=== PATIENT | male | born 1945 | race Caucasian/White ===

== ENCOUNTER 2018-01-27 13:34 | Inpatient (IN) | payer MEDICARE, BC ==
[~2018-01-27] VITALS: Ht 177.8 cm; Wt 144.5 kg
[2018-01-27] VITALS (7 sets, daily range): BP systolic 120–165; BP diastolic 71–120
[2018-01-27 14:03] LABS: BASOPHILS % (AUTO) 0.4 % (0-1); EOSINOPHILS # (AUTO) 0.1 X10'3 (0-0.9); EOSINOPHILS % (AUTO) 1.5 % (0-6); HEMOGLOBIN 14.8 g/dl (14.0-17.9); LYMPHOCYTES # (AUTO) 0.6 X10'3 (1.1-4.8); LYMPHOCYTES % (AUTO) 7.5 % (21-51); MEAN CORPUSCULAR HEMOGLOBIN 35.1 PG (27.0-31.0); MEAN CORPUSCULAR HGB CONC 33.7 % (33.0-36.5); MEAN CORPUSCULAR VOLUME 104.3 FL (78-98); MEAN PLATELET VOLUME 8.2 FL (7.4-10.4); MONOCYTES # (AUTO) 0.7 X10'3 (0-0.9); MONOCYTES % (AUTO) 9.1 % (2-12); NEUTROPHILS # (AUTO) 6.7 X10'3 (1.8-7.7); NEUTROPHILS % (AUTO) 81.5 % (42-75); PLATELET COUNT 141 X10'3 (140-440); RED BLOOD COUNT 4.22 X10'6 (4.70-6.10); RED CELL DISTRIBUTION WIDTH 15.9 % (11.5-14.5); WHITE BLOOD COUNT 8.2 X10'3 (4.5-11.0)
[2018-01-27] MEDS ORDERED: diltiazem-NS 100mg/100ml 100 ML IV ONE (14:09)
[2018-01-27] MEDS ORDERED: diltiazem 5mg/ml 5ml inj. IV ONE (14:10)
[2018-01-27] MEDS ORDERED: furosemide 40mg/4ml inj IV ONE (14:10)
[2018-01-27 14:19] LABS: ALANINE AMINOTRANSFERASE 34 U/L (12-78); ALBUMIN 3.4 G/DL (3.4-5.0); ALBUMIN/GLOBULIN RATIO 0.9 (1.1-1.5); ALKALINE PHOSPHATASE 168 IU/L (46-116); ANION GAP 13 (8-16); ASPARTATE AMINO TRANSFERASE 43 U/L (10-37); BILIRUBIN,TOTAL 2.3 MG/DL (0.1-1.0); BLOOD UREA NITROGEN 20 MG/DL (7-18); CALCIUM 8.8 MG/DL (8.5-10.1); CHLORIDE 100 MMOL/L (99-107); GLUCOSE 150 MG/DL (70-104); POTASSIUM 4.3 MMOL/L (3.5-5.1); SODIUM 137 MMOL/L (135-145); TOTAL PROTEIN 7.2 G/DL (6.4-8.2); eGFR 33 ML/MIN
[2018-01-27 14:32] LABS: INR 1.1 INR; PARTIAL THROMBOPLASTIN TIME 28 SECONDS (22-32); PROTHROMBIN TIME 11.2 SECONDS (9.0-12.0)
[2018-01-27] MEDS ORDERED: POTA20LI PO (14:52)
[2018-01-27] MEDS ORDERED: BEE580CA (14:52)
[2018-01-27] MEDS ORDERED: FLUC100T PO (14:52)
[2018-01-27] MEDS ORDERED: LISI-600 PO (14:54)
[2018-01-27] MEDS ORDERED: FURO40TA4 PO (14:54)
[2018-01-27 15:04] LABS: MAGNESIUM 1.8 MG/DL (1.5-2.4)
[2018-01-27] MEDS ORDERED: apixaban 5mg tablet PO STA (15:36)
[2018-01-27] MEDS ORDERED: magnesium Cl slow-release 64mg tablet PO PRN (15:45)
[2018-01-27] MEDS ORDERED: potassium Cl 40MEQ/NS 500ml 500 ML IV PRN ×2 (15:45)
[2018-01-27] MEDS ORDERED: magnesium 4gm in 100ml NS 100 ML IV PRN (15:45)
[2018-01-27] MEDS ORDERED: potassium Cl 20 mEq SR tablet PO PRN (15:45)
[2018-01-27] MEDS ORDERED: magnesium 1gm/100ml D5W IVPB 100 ML IV PRN (15:45)
[2018-01-27] MEDS: K and/or MAG REPLACEMENT MC SCH (15:55)
[2018-01-27] MEDS ORDERED: pneumococcal 23-VAL P-sac vacc 25 mcg/0.5ml vial IMVAC ONE (16:10)
[2018-01-27] MEDS ORDERED: diltiazem-NS 100mg/100ml 100 ML IV SCH (18:35)
[2018-01-27] MEDS: diltiazem-NS 100mg/100ml 100 ML IV SCH (19:24)
[2018-01-27] MEDS: diltiazem 30mg tablet PO SCH (19:34)
[2018-01-27] MEDS: furosemide 40mg/4ml inj IV SCH (22:29)
[2018-01-28] VITALS (14 sets, daily range): BP systolic 131–157; BP diastolic 48–90
[2018-01-28] MEDS: diltiazem-NS 100mg/100ml 100 ML IV SCH ×2 (00:49→11:12)
[2018-01-28] MEDS: diltiazem 30mg tablet PO SCH ×2 (01:36→08:05)
[2018-01-28 02:20] LABS: BASOPHILS % (AUTO) 0.5 % (0-1); EOSINOPHILS # (AUTO) 0.1 X10'3 (0-0.9); EOSINOPHILS % (AUTO) 1.7 % (0-6); HEMOGLOBIN 14.3 g/dl (14.0-17.9); LYMPHOCYTES # (AUTO) 0.7 X10'3 (1.1-4.8); LYMPHOCYTES % (AUTO) 9.6 % (21-51); MEAN CORPUSCULAR HEMOGLOBIN 34.4 PG (27.0-31.0); MEAN CORPUSCULAR HGB CONC 32.6 % (33.0-36.5); MEAN CORPUSCULAR VOLUME 105.4 FL (78-98); MEAN PLATELET VOLUME 8.4 FL (7.4-10.4); MONOCYTES # (AUTO) 0.8 X10'3 (0-0.9); MONOCYTES % (AUTO) 10.9 % (2-12); NEUTROPHILS # (AUTO) 5.8 X10'3 (1.8-7.7); NEUTROPHILS % (AUTO) 77.3 % (42-75); PLATELET COUNT 130 X10'3 (140-440); RED BLOOD COUNT 4.17 X10'6 (4.70-6.10); RED CELL DISTRIBUTION WIDTH 15.6 % (11.5-14.5); WHITE BLOOD COUNT 7.5 X10'3 (4.5-11.0)
[2018-01-28 02:33] LABS: ALBUMIN 3.1 G/DL (3.4-5.0); ANION GAP 10 (8-16); BLOOD UREA NITROGEN 21 MG/DL (7-18); BUN/CREATININE RATIO 10.7 (5.4-32.0); CALCIUM 8.8 MG/DL (8.5-10.1); CHLORIDE 101 MMOL/L (99-107); CHOL/HDL RATIO 2.6 (0.00-4.99); CHOLESTEROL 143 MG/DL (0-200); CREATININE 1.96 MG/DL (0.60-1.10); GLUCOSE 136 MG/DL (70-104); HDL CHOLESTEROL 54 MG/DL (35-60); LDL CHOLESTEROL 85 MG/DL (50-100); MAGNESIUM 1.7 MG/DL (1.5-2.4); POTASSIUM 3.7 MMOL/L (3.5-5.1); SODIUM 138 MMOL/L (135-145); TOTAL CARBON DIOXIDE 26.6 MMOL/L (24-32); TRIGLYCERIDES 64 MG/DL (20-135); eGFR 34 ML/MIN
[2018-01-28] MEDS: K and/or MAG REPLACEMENT MC SCH (08:00)
[2018-01-28] MEDS: furosemide 40mg/4ml inj IV SCH ×2 (08:05→19:57)
[2018-01-28 09:31] LABS: ALANINE AMINOTRANSFERASE 30 U/L (12-78); ALBUMIN 2.9 G/DL (3.4-5.0); ALBUMIN/GLOBULIN RATIO 0.8 (1.1-1.5); ALKALINE PHOSPHATASE 143 IU/L (46-116); ASPARTATE AMINO TRANSFERASE 30 U/L (10-37); BILIRUBIN,DIRECT 0.8 MG/DL (0-0.3); BILIRUBIN,TOTAL 2.2 MG/DL (0.1-1.0); TOTAL PROTEIN 6.4 G/DL (6.4-8.2)
[2018-01-28] MEDS ORDERED: pneumococcal 23-VAL P-sac vacc 25 mcg/0.5ml vial IMVAC ONE (10:00)
[2018-01-28] MEDS: apixaban 5mg tablet PO SCH ×2 (11:24→19:56)
[2018-01-28] MEDS ORDERED: diltiazem-NS 100mg/100ml 100 ML IV SCH (18:41)
[2018-01-28] MEDS: amiodarone 200mg tablet PO SCH (19:56)
[2018-01-28] MEDS: carVEDilol 12.5mg tablet PO SCH (21:58)
[2018-01-29] VITALS (7 sets, daily range): BP systolic 91–119; BP diastolic 60–69
[2018-01-29 06:34] LABS: BASOPHILS % (AUTO) 0.3 % (0-1); EOSINOPHILS # (AUTO) 0.2 X10'3 (0-0.9); EOSINOPHILS % (AUTO) 3.1 % (0-6); HEMATOCRIT 37.7 % (42.0-52.0); HEMOGLOBIN 12.6 g/dl (14.0-17.9); LYMPHOCYTES # (AUTO) 0.6 X10'3 (1.1-4.8); LYMPHOCYTES % (AUTO) 10.9 % (21-51); MEAN CORPUSCULAR HEMOGLOBIN 35.1 PG (27.0-31.0); MEAN CORPUSCULAR HGB CONC 33.4 % (33.0-36.5); MEAN CORPUSCULAR VOLUME 105.3 FL (78-98); MEAN PLATELET VOLUME 8.3 FL (7.4-10.4); MONOCYTES # (AUTO) 0.6 X10'3 (0-0.9); MONOCYTES % (AUTO) 10.2 % (2-12); NEUTROPHILS # (AUTO) 4.4 X10'3 (1.8-7.7); NEUTROPHILS % (AUTO) 75.5 % (42-75); PLATELET COUNT 113 X10'3 (140-440); RED BLOOD COUNT 3.58 X10'6 (4.70-6.10); RED CELL DISTRIBUTION WIDTH 15.6 % (11.5-14.5); WHITE BLOOD COUNT 5.9 X10'3 (4.5-11.0)
[2018-01-29 06:46] LABS: ALBUMIN 2.7 G/DL (3.4-5.0); ANION GAP 8 (8-16); BLOOD UREA NITROGEN 22 MG/DL (7-18); BUN/CREATININE RATIO 11.5 (5.4-32.0); CALCIUM 8.3 MG/DL (8.5-10.1); CHLORIDE 102 MMOL/L (99-107); CREATININE 1.91 MG/DL (0.60-1.10); GLUCOSE 143 MG/DL (70-104); MAGNESIUM 1.5 MG/DL (1.5-2.4); POTASSIUM 3.2 MMOL/L (3.5-5.1); SODIUM 140 MMOL/L (135-145); TOTAL CARBON DIOXIDE 30.4 MMOL/L (24-32); eGFR 35 ML/MIN
[2018-01-29] MEDS: K and/or MAG REPLACEMENT MC SCH (08:00)
[2018-01-29] MEDS: potassium Cl 20 mEq SR tablet PO PRN ×3 (08:01→21:11)
[2018-01-29] MEDS: apixaban 5mg tablet PO SCH ×2 (08:01→21:12)
[2018-01-29] MEDS: amiodarone 200mg tablet PO SCH ×2 (08:02→21:23)
[2018-01-29] MEDS: carVEDilol 12.5mg tablet PO SCH ×2 (08:02→21:12)
[2018-01-29] MEDS: furosemide 40mg/4ml inj IV SCH ×2 (08:05→21:12)
[2018-01-29] MEDS ORDERED: fluconazole 100mg tablet PO SCH (12:15)
[2018-01-29] MEDS: lisinopril 5mg tablet PO SCH (21:11)
[2018-01-30 06:00] VITALS: BP 107/65
[2018-01-30 07:24] LABS: BASOPHILS # (AUTO) 0.1 X10'3 (0-0.2); BASOPHILS % (AUTO) 1.3 % (0-1); EOSINOPHILS # (AUTO) 0.3 X10'3 (0-0.9); HEMATOCRIT 42.5 % (42.0-52.0); HEMOGLOBIN 14.3 g/dl (14.0-17.9); LYMPHOCYTES # (AUTO) 0.8 X10'3 (1.1-4.8); LYMPHOCYTES % (AUTO) 15.4 % (21-51); MEAN CORPUSCULAR HEMOGLOBIN 35.1 PG (27.0-31.0); MEAN CORPUSCULAR HGB CONC 33.6 % (33.0-36.5); MEAN CORPUSCULAR VOLUME 104.5 FL (78-98); MEAN PLATELET VOLUME 8.8 FL (7.4-10.4); MONOCYTES # (AUTO) 0.5 X10'3 (0-0.9); MONOCYTES % (AUTO) 10.2 % (2-12); NEUTROPHILS # (AUTO) 3.5 X10'3 (1.8-7.7); NEUTROPHILS % (AUTO) 67.1 % (42-75); PLATELET COUNT 118 X10'3 (140-440); RED BLOOD COUNT 4.06 X10'6 (4.70-6.10); RED CELL DISTRIBUTION WIDTH 15.7 % (11.5-14.5); WHITE BLOOD COUNT 5.2 X10'3 (4.5-11.0)
[2018-01-30] MEDS: furosemide 40mg/4ml inj IV SCH ×2 (07:26→20:00)
[2018-01-30] MEDS: apixaban 5mg tablet PO SCH ×2 (07:26→21:58)
[2018-01-30] MEDS: potassium Cl 20 mEq SR tablet PO PRN (07:27)
[2018-01-30] MEDS: carVEDilol 12.5mg tablet PO SCH ×2 (07:27→20:00)
[2018-01-30] MEDS: amiodarone 200mg tablet PO SCH ×2 (07:27→21:57)
[2018-01-30] MEDS: K and/or MAG REPLACEMENT MC SCH (07:30)
[2018-01-30 09:49] LABS: ALBUMIN 2.8 G/DL (3.4-5.0); ANION GAP 13 (8-16); BLOOD UREA NITROGEN 28 MG/DL (7-18); CALCIUM 8.3 MG/DL (8.5-10.1); CHLORIDE 102 MMOL/L (99-107); CREATININE 2.15 MG/DL (0.60-1.10); GLUCOSE 134 MG/DL (70-104); MAGNESIUM 1.7 MG/DL (1.5-2.4); POTASSIUM 3.5 MMOL/L (3.5-5.1); SODIUM 141 MMOL/L (135-145); TOTAL CARBON DIOXIDE 26.4 MMOL/L (24-32); eGFR 30 ML/MIN
[2018-01-30 11:00] VITALS: BP 103/69
[2018-01-30] MEDS ORDERED: magnesium hydroxide 30ml (MOM) UD suspension PO PRN (15:45)
[2018-01-30 19:00] VITALS: BP 109/76
[2018-01-30] MEDS: lisinopril 5mg tablet PO SCH (21:58)
[2018-01-30 22:00] VITALS: BP 109/69
[2018-01-31] VITALS (11 sets, daily range): BP systolic 94–138; BP diastolic 53–88
[2018-01-31 06:29] LABS: BASOPHILS # (AUTO) 0.1 X10'3 (0-0.2); EOSINOPHILS # (AUTO) 0.3 X10'3 (0-0.9); EOSINOPHILS % (AUTO) 6.2 % (0-6); LYMPHOCYTES # (AUTO) 0.7 X10'3 (1.1-4.8); LYMPHOCYTES % (AUTO) 13.9 % (21-51); MEAN CORPUSCULAR HEMOGLOBIN 35.1 PG (27.0-31.0); MEAN CORPUSCULAR HGB CONC 33.4 % (33.0-36.5); MEAN PLATELET VOLUME 8.5 FL (7.4-10.4); MONOCYTES # (AUTO) 0.5 X10'3 (0-0.9); MONOCYTES % (AUTO) 10.4 % (2-12); NEUTROPHILS # (AUTO) 3.6 X10'3 (1.8-7.7); NEUTROPHILS % (AUTO) 68.5 % (42-75); PLATELET COUNT 122 X10'3 (140-440); RED CELL DISTRIBUTION WIDTH 15.2 % (11.5-14.5); WHITE BLOOD COUNT 5.2 X10'3 (4.5-11.0)
[2018-01-31 06:42] LABS: ALBUMIN 2.8 G/DL (3.4-5.0); ANION GAP 8 (8-16); BLOOD UREA NITROGEN 32 MG/DL (7-18); BUN/CREATININE RATIO 14.8 (5.4-32.0); CALCIUM 8.9 MG/DL (8.5-10.1); CHLORIDE 103 MMOL/L (99-107); CREATININE 2.16 MG/DL (0.60-1.10); GLUCOSE 127 MG/DL (70-104); MAGNESIUM 1.8 MG/DL (1.5-2.4); POTASSIUM 3.6 MMOL/L (3.5-5.1); SODIUM 143 MMOL/L (135-145); eGFR 30 ML/MIN
[2018-01-31] MEDS: furosemide 40mg/4ml inj IV SCH (07:48)
[2018-01-31] MEDS: apixaban 5mg tablet PO SCH (07:48)
[2018-01-31] MEDS: amiodarone 200mg tablet PO SCH ×2 (07:48→20:26)
[2018-01-31] MEDS: carVEDilol 12.5mg tablet PO SCH ×2 (07:48→20:25)
[2018-01-31] MEDS: K and/or MAG REPLACEMENT MC SCH (08:00)
[2018-01-31] MEDS ORDERED: DOBUTamine-DoBUTrex 500mg/D5W 250 ML IV SCH (20:00)
[2018-01-31] MEDS: acetylcysteine 200 MG/ml 4ml vial PO SCH (20:25)
[2018-01-31] MEDS: lisinopril 5mg tablet PO SCH (20:25)
[2018-01-31] MEDS: DOBUTamine-DoBUTrex 500mg/D5W 250 ML IV SCH (20:28)
[2018-02-01] VITALS (15 sets, daily range): BP systolic 89–132; BP diastolic 51–89
[2018-02-01 06:43] LABS: BASOPHILS # (AUTO) 0.1 X10'3 (0-0.2); BASOPHILS % (AUTO) 1.1 % (0-1); EOSINOPHILS # (AUTO) 0.3 X10'3 (0-0.9); EOSINOPHILS % (AUTO) 5.8 % (0-6); HEMATOCRIT 43.6 % (42.0-52.0); HEMOGLOBIN 14.6 g/dl (14.0-17.9); LYMPHOCYTES # (AUTO) 0.8 X10'3 (1.1-4.8); LYMPHOCYTES % (AUTO) 15.3 % (21-51); MEAN CORPUSCULAR HEMOGLOBIN 34.8 PG (27.0-31.0); MEAN CORPUSCULAR HGB CONC 33.4 % (33.0-36.5); MEAN CORPUSCULAR VOLUME 104.1 FL (78-98); MEAN PLATELET VOLUME 8.4 FL (7.4-10.4); MONOCYTES # (AUTO) 0.6 X10'3 (0-0.9); MONOCYTES % (AUTO) 11.3 % (2-12); NEUTROPHILS # (AUTO) 3.5 X10'3 (1.8-7.7); NEUTROPHILS % (AUTO) 66.5 % (42-75); PLATELET COUNT 134 X10'3 (140-440); RED BLOOD COUNT 4.19 X10'6 (4.70-6.10); RED CELL DISTRIBUTION WIDTH 15.8 % (11.5-14.5); WHITE BLOOD COUNT 5.3 X10'3 (4.5-11.0)
[2018-02-01 06:48] LABS: ANION GAP 5 (8-16); BLOOD UREA NITROGEN 35 MG/DL (7-18); BUN/CREATININE RATIO 16.7 (5.4-32.0); CALCIUM 8.8 MG/DL (8.5-10.1); CHLORIDE 101 MMOL/L (99-107); CREATININE 2.09 MG/DL (0.60-1.10); GLUCOSE 131 MG/DL (70-104); POTASSIUM 3.5 MMOL/L (3.5-5.1); SODIUM 140 MMOL/L (135-145); TOTAL CARBON DIOXIDE 33.9 MMOL/L (24-32); eGFR 31 ML/MIN
[2018-02-01] MEDS: amiodarone 200mg tablet PO SCH ×2 (07:23→19:17)
[2018-02-01] MEDS: acetylcysteine 200 MG/ml 4ml vial PO SCH ×2 (07:23→19:17)
[2018-02-01] MEDS: carVEDilol 12.5mg tablet PO SCH ×2 (07:23→19:17)
[2018-02-01] MEDS: K and/or MAG REPLACEMENT MC SCH (08:00)
[2018-02-01] MEDS: DOBUTamine-DoBUTrex 500mg/D5W 250 ML IV SCH ×2 (12:53→23:50)
[2018-02-01] MEDS: SODIUM CHLORIDE 0.45% IV SCH (17:16)
[2018-02-01] MEDS: SODIUM BICARBONATE IV SCH (17:16)
[2018-02-01] MEDS: lisinopril 5mg tablet PO SCH (21:26)
[2018-02-02] VITALS (17 sets, daily range): BP systolic 103–163; BP diastolic 62–119
[2018-02-02] MEDS: SODIUM CHLORIDE 0.45% IV SCH ×2 (05:32→16:46)
[2018-02-02] MEDS: SODIUM BICARBONATE IV SCH ×2 (05:32→16:46)
[2018-02-02] MEDS: acetylcysteine 200 MG/ml 4ml vial PO SCH ×2 (07:21→19:41)
[2018-02-02] MEDS: amiodarone 200mg tablet PO SCH ×2 (07:21→19:43)
[2018-02-02] MEDS: carVEDilol 12.5mg tablet PO SCH ×2 (07:21→19:43)
[2018-02-02] MEDS ORDERED: midazolam 2 mg/2 ml injection ONE (07:31)
[2018-02-02] MEDS ORDERED: fentaNYL/PF 50MCG/1 ML 2ML syringe ONE (07:31)
[2018-02-02] MEDS ORDERED: iohexol 350MG/ML 100ml bottle IV ONE (07:32)
[2018-02-02] MEDS ORDERED: iohexol 350 MG/ML 50ML vial IV ONE (07:32)
[2018-02-02] MEDS ORDERED: heparin 1,000unit/ml 10ml vial 10 ML ONE (07:32)
[2018-02-02] MEDS ORDERED: nitroGLYCERIN-Tridil 50MG/D5W 250 ML IV ONE (07:32)
[2018-02-02 07:59] LABS: ALBUMIN 2.8 G/DL (3.4-5.0); ANION GAP 8 (8-16); BLOOD UREA NITROGEN 30 MG/DL (7-18); BUN/CREATININE RATIO 16.4 (5.4-32.0); CALCIUM 8.6 MG/DL (8.5-10.1); CHLORIDE 102 MMOL/L (99-107); CREATININE 1.83 MG/DL (0.60-1.10); GLUCOSE 124 MG/DL (70-104); SODIUM 142 MMOL/L (135-145); TOTAL CARBON DIOXIDE 31.6 MMOL/L (24-32); eGFR 36 ML/MIN
[2018-02-02] MEDS: K and/or MAG REPLACEMENT MC SCH (08:00)
[2018-02-02 08:01] LABS: POTASSIUM 3.6 MMOL/L (3.5-5.1)
[2018-02-02] MEDS ORDERED: LIDOcaine 1% (10mg/ml)w/preservative injection 20ml MDV ONE (08:18)
[2018-02-02] MEDS ORDERED: furosemide 40mg/4ml inj ONE (09:00)
[2018-02-02] MEDS ORDERED: potassium Cl 20 mEq SR tablet PO STA (09:45)
[2018-02-02] MEDS ORDERED: potassium Cl 20 mEq SR tablet PO SCH (10:00)
[2018-02-02 10:33] LABS: CHOL/HDL RATIO 3.6 (0.00-4.99); CHOLESTEROL 139 MG/DL (0-200); HDL CHOLESTEROL 39 MG/DL (35-60); LDL CHOLESTEROL 91 MG/DL (50-100); TRIGLYCERIDES 58 MG/DL (20-135)
[2018-02-02] MEDS: DOBUTamine-DoBUTrex 500mg/D5W 250 ML IV SCH (12:43)
[2018-02-02] MEDS: potassium Cl 20 mEq SR tablet PO SCH (19:43)
[2018-02-02] MEDS: furosemide 40mg/4ml inj IV SCH (19:43)
[2018-02-02] MEDS: lisinopril 5mg tablet PO SCH (22:22)
[2018-02-03] VITALS (12 sets, daily range): BP systolic 84–154; BP diastolic 48–97
[2018-02-03] MEDS: DOBUTamine-DoBUTrex 500mg/D5W 250 ML IV SCH ×2 (01:40→12:32)
[2018-02-03] MEDS: potassium Cl 20 mEq SR tablet PO SCH ×2 (07:50→21:19)
[2018-02-03] MEDS: apixaban 5mg tablet PO SCH ×2 (07:50→21:19)
[2018-02-03] MEDS: amiodarone 200mg tablet PO SCH ×2 (07:50→21:19)
[2018-02-03] MEDS: carVEDilol 12.5mg tablet PO SCH ×2 (07:50→21:20)
[2018-02-03] MEDS: furosemide 40mg/4ml inj IV SCH (07:51)
[2018-02-03] MEDS: acetylcysteine 200 MG/ml 4ml vial PO SCH (07:51)
[2018-02-03] MEDS: K and/or MAG REPLACEMENT MC SCH (08:00)
[2018-02-03 09:51] LABS: ALBUMIN 2.6 G/DL (3.4-5.0); ANION GAP 5 (8-16); BLOOD UREA NITROGEN 25 MG/DL (7-18); BUN/CREATININE RATIO 13.8 (5.4-32.0); CALCIUM 8.4 MG/DL (8.5-10.1); CHLORIDE 100 MMOL/L (99-107); CREATININE 1.81 MG/DL (0.60-1.10); GLUCOSE 189 MG/DL (70-104); MAGNESIUM 1.9 MG/DL (1.5-2.4); SODIUM 142 MMOL/L (135-145); TOTAL CARBON DIOXIDE 36.7 MMOL/L (24-32); eGFR 37 ML/MIN
[2018-02-03 09:52] LABS: POTASSIUM 3.8 MMOL/L (3.5-5.1)
[2018-02-03 15:00] LABS: ISTAT Hct MIX 40 %PCV (42-52); ISTAT O2 SATURATION MIX VENOUS 64 % (60-80); ISTAT SOURCE MIX
[2018-02-03 15:00] LABS: ISTAT HGB ART 13.3 g/dl (14.0-18.0); ISTAT Hct ART 39 %PCV (42-52); ISTAT O2 SATURATION ARTERIAL 97 % (95-98); ISTAT SOURCE ART
[2018-02-03] MEDS ORDERED: furosemide 40mg/4ml inj IV SCH (16:00)
[2018-02-03] MEDS: lisinopril 5mg tablet PO SCH (21:19)
[2018-02-04] MEDS: furosemide 20 MG/2 ML vial IV SCH ×3 (00:55→16:00)
[2018-02-04 01:00] VITALS: BP 119/85
[2018-02-04 03:00] VITALS: BP 123/61
[2018-02-04 05:00] VITALS: BP 132/74
[2018-02-04] MEDS: DOBUTamine-DoBUTrex 500mg/D5W 250 ML IV SCH (05:29)
[2018-02-04 06:00] VITALS: BP 135/70
[2018-02-04] MEDS: potassium Cl 20 mEq SR tablet PO SCH (07:27)
[2018-02-04] MEDS: carVEDilol 12.5mg tablet PO SCH (07:27)
[2018-02-04] MEDS: apixaban 5mg tablet PO SCH (07:27)
[2018-02-04] MEDS: amiodarone 200mg tablet PO SCH (07:27)
[2018-02-04] MEDS: K and/or MAG REPLACEMENT MC SCH (08:00)
[2018-02-04 10:07] LABS: ALBUMIN 2.6 G/DL (3.4-5.0); ANION GAP 4 (8-16); BLOOD UREA NITROGEN 26 MG/DL (7-18); BUN/CREATININE RATIO 12.7 (5.4-32.0); CALCIUM 8.6 MG/DL (8.5-10.1); CHLORIDE 102 MMOL/L (99-107); CREATININE 2.05 MG/DL (0.60-1.10); GLUCOSE 201 MG/DL (70-104); POTASSIUM 3.6 MMOL/L (3.5-5.1); SODIUM 144 MMOL/L (135-145); TOTAL CARBON DIOXIDE 38.5 MMOL/L (24-32); eGFR 32 ML/MIN
[2018-02-04 11:00] VITALS: BP 112/57
== END 2018-02-04 15:45 | DRG 286 ==
LOC: ER 13:38 → ED HOLD 15:44 → PCU 3S 16:50
PROVIDERS: ADMIT Internal Medicine; ATTEND Family Medicine
PROC: 3E0234Z Introduction of Serum, Toxoid and Vaccine into Muscle, Percutaneous Approach (ICD-10-PCS; 2018-01-28)
PROC: 4A023N8 Measurement of Cardiac Sampling and Pressure, Bilateral, Percutaneous Approach (ICD-10-PCS; principal; 2018-02-02)
PROC: B2111ZZ Fluoroscopy of Multiple Coronary Arteries using Low Osmolar Contrast (ICD-10-PCS; 2018-02-02)
PROC: B2151ZZ Fluoroscopy of Left Heart using Low Osmolar Contrast (ICD-10-PCS; 2018-02-02)
DX: I13.0 Hypertensive heart and chronic kidney disease with heart failure and stage 1 through stage 4 chronic kidney disease, or unspecified chronic kidney disease (principal); I50.23 Acute on chronic systolic (congestive) heart failure; Z68.42 Body mass index [BMI] 45.0-49.9, adult; I48.91 Unspecified atrial fibrillation; E66.01 Morbid (severe) obesity due to excess calories; G51.0 Bell's palsy; Z60.2 Problems related to living alone; N50.89 Other specified disorders of the male genital organs; I25.10 Atherosclerotic heart disease of native coronary artery without angina pectoris; I87.2 Venous insufficiency (chronic) (peripheral); N18.9 Chronic kidney disease, unspecified; R29.6 Repeated falls; Z23 Encounter for immunization; Z79.899 Other long term (current) drug therapy; Z82.49 Family history of ischemic heart disease and other diseases of the circulatory system
CPT/HCPCS: 36415; 71045; 80048; 80053; 80061; 80076; 82803; 83735; 83880; 84484; 85014; 85025; 85610; 85730; 87070; 90732; 93005; 93306; 93460; 96365; 96375; 97110; 97116; 97161; 97530; 99285; A4620; A6257; C1760; C1769; J1250; J1644; J1940; J2001; J2250; J3010; J3490; Q9967

== ENCOUNTER 2018-06-02 09:16 | Emergency (ER) | payer MEDICARE, BC ==
[~2018-06-02] VITALS: Ht 180.3 cm; Wt 119.5 kg
[~2018-06-02 09:16] MED LIST: AMIO200T40 PO; CARV-50 PO; FURO40TA4 PO; LISI-600 PO; POTA20LI PO
[2018-06-02 09:25] VITALS: BP 151/60
[2018-06-02] MEDS ORDERED: ondansetron 4mg rapidly disintigrating tab PO ONE (11:45)
[2018-06-02] MEDS ORDERED: DOXYCYCLINE 100MG CAPSULE PO STA (11:46)
[2018-06-02] MEDS ORDERED: ONDA8TAB6 PO (11:47)
[2018-06-02] MEDS ORDERED: DOXY100C43 PO (11:47)
[2018-06-02] MEDS ORDERED: CEPH250T PO (11:49)
== END 2018-06-02 13:19 | disposition home or self-care (01) ==
LOC: ER 09:17
DX: L08.9 Local infection of the skin and subcutaneous tissue, unspecified (principal); I48.91 Unspecified atrial fibrillation; I25.10 Atherosclerotic heart disease of native coronary artery without angina pectoris; I11.0 Hypertensive heart disease with heart failure; I50.9 Heart failure, unspecified; Z79.899 Other long term (current) drug therapy; Z98.890 Other specified postprocedural states
CPT/HCPCS: 10180; 93926; 93971; 99284

== ENCOUNTER 2019-12-21 10:27 | Day surgery (SDC) | payer MEDICARE, BC ==
[~2019-12-21 10:27] MED LIST changes: -AMIO200T40 PO; +AMIO200T61 PO; +ATOR20TA PO; -CARV-50 PO; +FURO-150 PO; -FURO40TA4 PO; +LEVO125T8 PO; +METO100T7 PO; +MULT-25 PO; -POTA20LI PO; +POTA8CAP20 PO; +folic acid tablet PO; +thiamine tablet PO
[2019-12-21] MEDS ORDERED: LIDOcaine 2% 5ml jelly ONE (10:47)
== END 2019-12-21 14:02 | disposition home or self-care (01) ==
LOC: WOUND CARE 10:27
PROVIDERS: ATTEND Nurse Practitioner
DX: S81.802D Unspecified open wound, left lower leg, subsequent encounter (principal); L97.222 Non-pressure chronic ulcer of left calf with fat layer exposed; I13.0 Hypertensive heart and chronic kidney disease with heart failure and stage 1 through stage 4 chronic kidney disease, or unspecified chronic kidney disease; I25.10 Atherosclerotic heart disease of native coronary artery without angina pectoris; N18.4 Chronic kidney disease, stage 4 (severe); I50.32 Chronic diastolic (congestive) heart failure; E78.5 Hyperlipidemia, unspecified; I48.91 Unspecified atrial fibrillation; E03.9 Hypothyroidism, unspecified; F32.9 Major depressive disorder, single episode, unspecified; Z79.899 Other long term (current) drug therapy; X58.XXXD Exposure to other specified factors, subsequent encounter
CPT/HCPCS: 97597

== ENCOUNTER 2019-12-28 13:24 | Day surgery (SDC) | payer MEDICARE, BC ==
[2019-12-28] MEDS ORDERED: LIDOcaine 2% 5ml jelly ONE (14:12)
== END 2019-12-28 14:48 | disposition home or self-care (01) ==
LOC: WOUND CARE 13:24
PROVIDERS: ATTEND Nurse Practitioner
DX: S81.802D Unspecified open wound, left lower leg, subsequent encounter (principal); L97.222 Non-pressure chronic ulcer of left calf with fat layer exposed; I13.0 Hypertensive heart and chronic kidney disease with heart failure and stage 1 through stage 4 chronic kidney disease, or unspecified chronic kidney disease; I25.10 Atherosclerotic heart disease of native coronary artery without angina pectoris; N18.4 Chronic kidney disease, stage 4 (severe); I50.32 Chronic diastolic (congestive) heart failure; E78.5 Hyperlipidemia, unspecified; I48.91 Unspecified atrial fibrillation; E03.9 Hypothyroidism, unspecified; F32.9 Major depressive disorder, single episode, unspecified; Z79.899 Other long term (current) drug therapy; X58.XXXD Exposure to other specified factors, subsequent encounter
CPT/HCPCS: 97597

== ENCOUNTER 2020-01-04 09:35 | Day surgery (SDC) | payer MEDICARE, BC ==
[2020-01-04] MEDS ORDERED: LIDOcaine 2% 5ml jelly ONE (09:49)
== END 2020-01-04 11:02 | disposition home or self-care (01) ==
LOC: WOUND CARE 09:35
PROVIDERS: ATTEND Nurse Practitioner
DX: S81.802D Unspecified open wound, left lower leg, subsequent encounter (principal); L97.222 Non-pressure chronic ulcer of left calf with fat layer exposed; I13.0 Hypertensive heart and chronic kidney disease with heart failure and stage 1 through stage 4 chronic kidney disease, or unspecified chronic kidney disease; I25.10 Atherosclerotic heart disease of native coronary artery without angina pectoris; N18.4 Chronic kidney disease, stage 4 (severe); I50.32 Chronic diastolic (congestive) heart failure; E78.5 Hyperlipidemia, unspecified; I48.91 Unspecified atrial fibrillation; E03.9 Hypothyroidism, unspecified; F32.9 Major depressive disorder, single episode, unspecified; Z79.899 Other long term (current) drug therapy; X58.XXXD Exposure to other specified factors, subsequent encounter
CPT/HCPCS: 97597

== ENCOUNTER 2020-01-11 10:37 | Day surgery (SDC) | payer MEDICARE, BC ==
[2020-01-11] MEDS ORDERED: LIDOcaine 2% 5ml jelly ONE (10:52)
== END 2020-01-11 11:18 | disposition home or self-care (01) ==
LOC: WOUND CARE 10:37
PROVIDERS: ATTEND Registered Nurse General Practice
DX: S81.802D Unspecified open wound, left lower leg, subsequent encounter (principal); L97.222 Non-pressure chronic ulcer of left calf with fat layer exposed; I13.0 Hypertensive heart and chronic kidney disease with heart failure and stage 1 through stage 4 chronic kidney disease, or unspecified chronic kidney disease; I25.10 Atherosclerotic heart disease of native coronary artery without angina pectoris; N18.4 Chronic kidney disease, stage 4 (severe); I50.32 Chronic diastolic (congestive) heart failure; E78.5 Hyperlipidemia, unspecified; I48.91 Unspecified atrial fibrillation; E03.9 Hypothyroidism, unspecified; F32.9 Major depressive disorder, single episode, unspecified; Z79.899 Other long term (current) drug therapy; X58.XXXD Exposure to other specified factors, subsequent encounter
CPT/HCPCS: 97597

== ENCOUNTER 2020-01-18 10:50 | Day surgery (SDC) | payer MEDICARE, BC ==
[2020-01-18] MEDS ORDERED: LIDOcaine 2% 5ml jelly ONE (11:18)
== END 2020-01-18 11:43 | disposition home or self-care (01) ==
LOC: WOUND CARE 10:50
PROVIDERS: ATTEND Nurse Practitioner
DX: S81.802D Unspecified open wound, left lower leg, subsequent encounter (principal); L97.222 Non-pressure chronic ulcer of left calf with fat layer exposed; I13.0 Hypertensive heart and chronic kidney disease with heart failure and stage 1 through stage 4 chronic kidney disease, or unspecified chronic kidney disease; I25.10 Atherosclerotic heart disease of native coronary artery without angina pectoris; N18.4 Chronic kidney disease, stage 4 (severe); I50.32 Chronic diastolic (congestive) heart failure; E78.5 Hyperlipidemia, unspecified; I48.91 Unspecified atrial fibrillation; E03.9 Hypothyroidism, unspecified; F32.9 Major depressive disorder, single episode, unspecified; Z79.899 Other long term (current) drug therapy; X58.XXXD Exposure to other specified factors, subsequent encounter
CPT/HCPCS: 97597

== ENCOUNTER 2020-01-25 10:20 | Day surgery (SDC) | payer MEDICARE, BC ==
[2020-01-25] MEDS ORDERED: LIDOcaine 2% 5ml jelly ONE (10:30)
== END 2020-01-25 10:54 | disposition home or self-care (01) ==
LOC: WOUND CARE 10:20
PROVIDERS: ATTEND Nurse Practitioner
DX: S81.802D Unspecified open wound, left lower leg, subsequent encounter (principal); L97.222 Non-pressure chronic ulcer of left calf with fat layer exposed; I25.10 Atherosclerotic heart disease of native coronary artery without angina pectoris; I13.0 Hypertensive heart and chronic kidney disease with heart failure and stage 1 through stage 4 chronic kidney disease, or unspecified chronic kidney disease; N18.4 Chronic kidney disease, stage 4 (severe); I50.32 Chronic diastolic (congestive) heart failure; E78.5 Hyperlipidemia, unspecified; I48.91 Unspecified atrial fibrillation; E03.9 Hypothyroidism, unspecified; F32.9 Major depressive disorder, single episode, unspecified; F10.10 Alcohol abuse, uncomplicated; Z79.899 Other long term (current) drug therapy; X58.XXXD Exposure to other specified factors, subsequent encounter
CPT/HCPCS: 97597